=== PATIENT | male | born 1940 | race Hispanic/Latino ===

== ENCOUNTER 2016-06-17 12:05 | Inpatient (IN) | payer MEDICARE, MEDICAID ==
[2016-06-17 12:05] VITALS: BMI 36.7
--- NOTE | 2016-06-17 12:46 | CT ---
PROCEDURE: CT HEAD WITHOUT CONTRAST. HISTORY: . COMPARISON: Comparison is made to the previous study dated 05/22/2015 TECHNIQUE: Axial computed tomography images were obtained through the head/brain without intravenous contrast. Radiation dose: Total exam DLP = 850.37 mGy-cm. This CT exam was performed using one or more of the following dose reduction techniques: Automated exposure control, adjustment of the mA and/or kV according to patient size, and/or use of iterative reconstruction technique. FINDINGS: HEMORRHAGE: No intracranial hemorrhage. BRAIN: No mass effect or edema. Small foci of hypodensity are again seen around the lateral ventricles. Findings suggestive of moderate chronic microvascular ischemic disease. Mild atrophy is also noted. VENTRICLES: Unremarkable. No hydrocephalus. CALVARIUM: Unremarkable. PARANASAL SINUSES: Mild mucosal thickening in the ethmoid sinuses noted. MASTOID AIR CELLS: Partial opacification of the right mastoid and right middle ear is also noted. OTHER FINDINGS: None. IMPRESSION: No evidence of acute intracranial hemorrhage acute territorial infarct mass effect or midline shift. No significant interval change compared to the previous exam noted. Partial opacification of the right mastoid and right middle ear. Correlate clinically for otomastoiditis.
[2016-06-17 12:54] LABS: BASO % 0.6 % (0.0-2.0); EOS # 0.3 K/uL (0.0-0.7); EOS % 4.3 % (0.0-4.0); HEMATOCRIT 48.2 % (35.0-51.0); LYMPH # 1.5 K/uL (1.0-4.3); LYMPH % 23.9 % (20.0-40.0); MEAN CELL VOLUME 91.6 fL (80.0-94.0); MEAN CORPUSCULAR HEMOGLOBIN 29.7 pg (27.0-31.0); MEAN CORPUSCULAR HGB CONC 32.5 g/dL (33.0-37.0); MEAN PLATELET VOLUME 9.1 fL (7.2-11.7); MONO # 0.7 K/uL (0.0-0.8); MONO % 11.5 % (0.0-10.0); RED CELL DISTRIBUTION WIDTH 14.8 % (11.5-14.5); WHITE BLOOD COUNT 6.2 K/uL (4.8-10.8)
[2016-06-17 13:07] LABS: CHLORIDE 99 mmol/L (98-107)
[2016-06-17 13:08] LABS: POTASSIUM 4.4 mmol/L (3.6-5.2); SODIUM 139 mmol/L (132-148)
[2016-06-17 13:09] LABS: CHOLESTEROL 138 mg/dL (0-199)
[2016-06-17 13:10] LABS: ALB/GLOB RATIO 1.6 (1.0-2.1); ALKALINE PHOSPHATASE 68 U/L (38-126); ALT/SGPT 24 U/L (21-72); AST/SGOT 48 U/L (17-59); BILIRUBIN,TOTAL 0.8 mg/dL (0.2-1.3); BLOOD UREA NITROGEN 26 mg/dL (9-20); CALCIUM 8.9 mg/dl (8.6-10.4); CARBON DIOXIDE 25 mmol/L (22-30); GFR AFRICAN-AMERICAN > 60; GLUCOSE,RANDOM 123 mg/dL (75-110); TOTAL PROTEIN 7.3 g/dL (6.3-8.3)
--- NOTE | 2016-06-17 13:17 | C.PDOC ---
History Of Present Illness Patient BIBA for evaluation of LUE weakness and headache that began at approx 10 :30am. Patient states he was at [facility] when he suddenly felt complete weakness of the LUE, was unable to move it. Symptoms have improved since then, currently feels mild weakness of LUE. He denies chest pain, SOB, visual changes , facial droop, slurred speech, cough, fever, neck pain. He has h/o HTN, DM II , hyperlipidemia, denies prior NV/CVA. Time Seen by Provider: 06/17/16 12:16 Chief Complaint (Nursing): Weakness/Neurological Deficit Past Medical History Reviewed: Historical Data, Nursing Documentation, Vital Signs Vital Signs: Last Vital Signs Temp 98.1 F 06/17/16 12:26 Pulse 76 06/17/16 12:45 Resp 16 06/17/16 12:45 BP 152/71 H 06/17/16 12:45 Pulse Ox 93 L 06/17/16 14:20 - Medical History PMH: Arthritis, Benign Prostatic Hyperplasia, Diabetes (NIDDM), Diverticulitis, Gall Bladder Disease (CHOLECYSTECTOMY "MANY YEARS AGO"), HTN, Hypercholesterolemia, Peripheral Edema, Sleep Apnea (NO C PAP) Surgical History: Cholecystectomy ("Over 20 years ago"), Hernia Repair - [facility] Procedures ENDOSC POLYPECTOMY OF LG INTEST (08/03/14) Family History: States: No Known Family Hx, Other Other Family History: noncontributory - Social History Hx Tobacco Use: Yes Hx Alcohol Use: No Hx Substance Use: No - Immunization History Hx Tetanus Toxoid Vaccination: Yes Hx Influenza Vaccination: Yes Hx Pneumococcal Vaccination: Yes Review Of Systems Except As Marked, All Systems Reviewed And Found Negative. Constitutional: Negative for: Fever, Chills Cardiovascular: Negative for: Chest Pain, Palpitations Respiratory: Negative for: Cough, Hemoptysis Gastrointestinal: Negative for: Nausea, Vomiting, Abdominal Pain, Diarrhea Neurological: Positive for: Weakness (LUE), Headache. Negative for: Numbness, Incoordination, Change in Speech, Confusion, Seizures, Altered Mental Status, Dizziness Physical Exam - Physical Exam Appears: Well, Non-toxic, No Acute Distress Skin: Normal Color, Warm, Dry, No Rash Head: Atraumatic, Normacephalic Eye(s): bilateral: Normal Inspection, PERRL, EOMI Oral Mucosa: Moist Neck: Normal, Normal ROM Chest: Symmetrical Cardiovascular: Rhythm Regular Respiratory: Normal Breath Sounds, No Rales, No Rhonchi, No Wheezing Gastrointestinal/Abdominal: Normal Exam, Bowel Sounds, Soft, No Tenderness Extremity: Normal ROM, No Pedal Edema, No Calf Tenderness, No Deformity Extremity: Bilateral: Atraumatic, Normal Color And Temperature, Normal ROM Pulses: Left Dorsalis Pedis: Normal, Right Dorsalis Pedis: Normal Neurological/Psych: Oriented x3, Normal Speech, Normal Cognition, Normal Cranial Nerves, No Cerebellar Signs, Normal Motor, Normal Sensation, Normal Reflexes Gait: Steady ED Course And Treatment - Laboratory Results Result Diagrams: 06/17/16 12:46 06/17/16 12:46 ECG: Interpreted By Me, Viewed By Me (NSR 73 bpm, left axis deviation, no acute ST/T wave changes) ECG Interpretation: No Acute Changes O2 Sat by Pulse Oximetry: 93 (RA) Pulse Ox Interpretation: Abnormal - Other Rad CXR X-Ray: Viewed By Me, Read By Radiologist Interpretation: Accession No. : [id number]. Patient Name / ID : ANGELA HOLLINGSWORTH / [id number]. Exam Date : 06/17/2016 12:25:16 ( Approved ). Study Comment : Sex / Age : M / 76Y. Creator : RALPH KATZ. Dictator : Pauline Schmitz MD. Folder Machine : Chief Solution Architect : Pauline Schmitz MD. Approver2 : Report Date : 06/17/2016 12:57:42. My Comment : . HISTORY: code stroke. COMPARISON: Chest x-ray performed 12/23/15. TECHNIQUE: Chest, one view. FINDINGS: LUNGS: Prominent interstitial markings likely reflect vascular crowding due to hypoinflation rather than pulmonary venous congestion. Correlate clinically. Please note that chest x-ray has limited sensitivity for the detection of pulmonary masses. PLEURA: No significant pleural effusion identified. No definite pneumothorax . CARDIOVASCULAR: Stable appearing enlargement of the cardiomediastinal silhouette. Probable ectatic aorta and atherosclerotic calcifications. OSSEOUS STRUCTURES: No acute osseous abnormality identified. VISUALIZED UPPER ABDOMEN: Unremarkable. OTHER FINDINGS: None. IMPRESSION: Prominent interstitial markings likely reflect vascular crowding due to hypoinflation rather than pulmonary venous congestion. Correlate clinically. Stable appearing enlargement of the cardiomediastinal silhouette. Probable ectatic aorta and atherosclerotic calcifications. - CT Scan/US CT HEAD Other Rad Studies (CT/US): Read By Radiologist, Radiology Report Reviewed CT/US Interpretation: Accession No. : [id number]. Patient Name / ID : ANGELA HOLLINGSWORTH / [id number]. Exam Date : 06/17/2016 12:35:04 ( Approved ). Study Comment : Sex / Age : M / 76Y. Creator : Mirta Daniel. Dictator : Mirta Daniel. Folder Machine : Chief Solution Architect : Mirta Daniel. Approver2 : Report Date : 06/17/2016 12:44:36. My Comment : . PROCEDURE: CT HEAD WITHOUT CONTRAST. HISTORY: . COMPARISON: Comparison is made to the previous study dated 05/22/2015. TECHNIQUE: Axial computed tomography images were obtained through the head/brain without intravenous contrast. Radiation dose: Total exam DLP = 850.37 mGy-cm. This CT exam was performed using one or more of the following dose reduction techniques: Automated exposure control, adjustment of the mA and/or kV according to patient size, and/or use of iterative reconstruction technique. FINDINGS: HEMORRHAGE: No intracranial hemorrhage. BRAIN: No mass effect or edema. Small foci of hypodensity are again seen around the lateral ventricles. Findings suggestive of moderate chronic microvascular ischemic disease. Mild atrophy is also noted. VENTRICLES : Unremarkable. No hydrocephalus. CALVARIUM: Unremarkable. PARANASAL SINUSES : Mild mucosal thickening in the ethmoid sinuses noted. MASTOID AIR CELLS: Partial opacification of the right mastoid and right middle ear is also noted. OTHER FINDINGS: None. IMPRESSION: No evidence of acute intracranial hemorrhage acute territorial infarct mass effect or midline shift. No significant interval change compared to the previous exam noted. Partial opacification of the right mastoid and right middle ear. Correlate clinically for otomastoiditis. Progress Note: Blood work, CXR, EKG, CT head ordered and reviewed. After CT head (-) for bleed, PO ASA 162mg given (patient took 81 mg dose prior to arrival ). Ct read mentions right ear/mastoid findings, however patient has no ear pain /mastoid TTP. Reevaluation Time: 14:10 Reassessment Condition: Improved (Patient resting comfortably, has no current pain. He still c/o mild LUE weakness, but has 5/5 motor strength and normal sensation on physical exam B/L.) - Physician Consult Information Physician Contacted: Zaki Potts Outcome Of Conversation: Discussed patient with Dr. Cayetano Potts, he agrees with telemetry admission for TIA. Neurology road commissioner & Dr. Farmer's (patient's ward service supervisor) consults entered. NIHSS Stroke Scale - Date/Time Evaluation Performed Date Performed: 06/17/16 Time Performed: 12:12 When Was NIHSS Performed: Baseline - How Severe is the Stoke Level of Consciousness: 0=Alert LOC to Questions: 0=Both comments correct LOC to commands: 0=Obeys both correctly Best Gaze: 0=Normal Visual: 0=No visual loss Facial: 0=Normal Motor Arm - Left: 0=No drift Motor Arm - Right: 0=No drift Motor Leg - Left: 0=No drift Motor Leg - Right: 0=No drift Limb Ataxia: 0=Absent Sensory: 0=Normal Best Language: 0=No aphasia Dysarthia: 0=Normal articulation Extinction & Inattention (Neglect): 0=Normal, no object Score: 0 Severity Of Stroke: 0= No Stroke rTPA Inclusion/Exclusion - Refusal of Treatment Patient Refused Treatment: No - Inclusion Criteria for Altepase Patient is 18 years or Older: Yes The Clinical Diagnosis of Ischemic Stroke That is Causing a Potentially Disabling Neurological Deficit: No Time of Onset is Well Established to be Less Than 270 Minute Before Treatment Would Begin: Yes Risk/Benefit Discussed With Patient/Family Member Present: No Medical Decision Making Medical Decision Making: differential diagnoses considered: TIA/CVA, cervical radiculopathy, diabetic neuropathy, thoracic outlet syndome, NV/ACS Disposition - Disposition Disposition Time: 14:12 Condition: STABLE - Clinical Impression Clinical Impression: TIA (transient ischemic attack), Left arm weakness Decision To Admit - Pt Status Changed To: Hospital Disposition Of: Inpatient - Admit Certification Admit to Inpatient:: After my assessment, the patient will require hospitalization for at least two midnights. This is because of the severity of symptoms shown, intensity of services needed, and/or the medical risk in this patient being treated as an outpatient. - InPatient: Physician Admission Certification: I certify that this patient requires 2 or more midnights of care for the following reason:: see notes - . Bed Request Type: Telemetry Admitting Physician: Zaki Potts Patient Diagnosis: TIA (transient ischemic attack), Left arm weakness
--- NOTE | 2016-06-17 13:26 | RAD ---
HISTORY: code stroke COMPARISON: Chest x-ray performed 12/23/15 TECHNIQUE: Chest, one view. FINDINGS: LUNGS: Prominent interstitial markings likely reflect vascular crowding due to hypoinflation rather than pulmonary venous congestion. Correlate clinically. Please note that chest x-ray has limited sensitivity for the detection of pulmonary masses. PLEURA: No significant pleural effusion identified. No definite pneumothorax . CARDIOVASCULAR: Stable appearing enlargement of the cardiomediastinal silhouette. Probable ectatic aorta and atherosclerotic calcifications. OSSEOUS STRUCTURES: No acute osseous abnormality identified. VISUALIZED UPPER ABDOMEN: Unremarkable. OTHER FINDINGS: None. IMPRESSION: Prominent interstitial markings likely reflect vascular crowding due to hypoinflation rather than pulmonary venous congestion. Correlate clinically. Stable appearing enlargement of the cardiomediastinal silhouette. Probable ectatic aorta and atherosclerotic calcifications.
--- NOTE | 2016-06-17 18:21 | CP.PCM.CON ---
History of Present Illness - History of Present Illness History of Present Illness: I was asked to see patient by Dr Potts. Patient is a 76 year old male with PMH HTN who presents with TIA. The patient states he was at [facility] when he noted lUE weakness. The patient denied slurred sleep or facial droop. His L arm felt numb. The patient was unable to feel his left arm. He was brought to the ER. The patient had symptoms concerning for a TIA. He states at the time of my consultation in the ER he is able to lift his arm. Review of Systems - Constitutional Constitutional: absent: As Per HPI, Anorexia, Chills, Daytime Sleepiness, Excessive Sweating, Fatigue, Fever, Frequent Falls, Headache, Increased Appetite , Lethargy, Malaise, Night Sweats, Snoring, Sleep Apnea, Weight Gain, Weight Loss, Weakness, Other - EENT Eyes: absent: As Per HPI, Blind Spots, Blurred Vision, Change in Vision, Decreased Night Vision, Diplopia, Discharge, Dry Eye, Exophthalmos, Floaters, Irritation, Itchy Eyes, Loss of Peripheral Vision, Pain, Photophobia, Requires Corrective Lenses, Sees Flashes, Spots in Vision, Tunnel Vision, Other Visual Disturbances, Loss of Vision, Other Ears: absent: As Per HPI, Decreased Hearing, Ear Discharge, Ear Pain, Tinnitus, Abnormal Hearing, Disequilibrium, Dizziness, Other Nose/Mouth/Throat: absent: As Per HPI, Epistaxis, Nasal Congestion, Nasal Discharge, Nasal Obstruction, Nasal Trauma, Nose Pain, Post Nasal Drip, Sinus Pain, Sinus Pressure, Bleeding Gums, Change in Voice, Dental Pain, Dry Mouth, Dysphagia, Halitosis, Hoarsness, Lip Swelling, Mouth Lesions, Mouth Pain, Odynophagia, Sore Throat, Throat Swelling, Tongue Swelling, Facial Pain, Neck Pain, Neck Mass, Other - Cardiovascular Cardiovascular: absent: As Per HPI, Acrocyanosis, Chest Pain, Chest Pain at Rest , Chest Pain with Activity, Claudication, Diaphoresis, Dyspnea, Dyspnea on Exertion, Edema, Irregular Heart Rhythm, Pain Radiating to Arm/Neck/Jaw, Leg Edema, Leg Ulcers, Lightheadedness, Orthopnea, Palpitations, Paroxysmal Nocturnal Dyspnea, Pedal Edema, Radiating Pain, Rapid Heart Rate, Slow Heart Rate, Syncope, Other - Respiratory Respiratory: absent: As Per HPI, Cough, Dyspnea, Hemoptysis, Dyspnea on Exertion , Wheezing, Snoring, Stridor, Pain on Inspiration, Chest Congestion, Excessive Mucous Production, Change in Mucous Color, Pain with Coughing, Other - Gastrointestinal Gastrointestinal: absent: As Per HPI, Abdominal Pain, Belching, Bloating, Change in Bowel Habits, Change in Stool Character, Coffee Ground Emesis, Constipation, Cramping, Diarrhea, Dyspepsia, Dysphagia, Early Satiety, Excessive Flatus, Fecal Incontinence, Heartburn, Hematemesis, Hematochezia, Loose Stools, Melena, Nausea, Odynophagia, Temesmus, Vomiting, Other - Genitourinary Genitourinary: absent: As Per HPI, Change in Urinary Stream, Difficulty Urinating, Dysuria, Flank Pain, Hematuria, Pyuria, Nocturia, Urinary Incontinence, Urinary Frequency, Urinary Hesitance, Urinary Urgency, Voiding Freq/Small Amts, Freq UTI, Hx Renal/Bladder Calculi, Hx /Renal Surgery, Bladder Distension, Other - Musculoskeletal Musculoskeletal: absent: As Per HPI, Abnormal Gait, Arthralgias, Atrophy, Back Pain, Deformity, Joint Swelling, Limited Range of Motion, Loss of Height, Muscle Cramps, Muscle Weakness, Myalgias, Neck Pain, Numbness, Radiating Pain into Limb, Stiffness, Tingling, Other - Integumentary Integumentary: absent: As Per HPI, Acne, Alopecia, Bleeding Lesions, Change in Hair, Change in Nails, Change in Pigmentation, Changing Lesions, Dry Skin, Erythema, Furuncle, Hirsutism, Lesions, New Lesions, Non-Healing Lesions, Photosensitivity, Pruritus, Rash, Skin Pain, Skin Ulcer, Sores, Striae, Swelling , Unusual Bruising, Wounds, Jaundice, Other - Neurological Neurological: Weakness - Psychiatric Psychiatric: absent: As Per HPI, Abnormal Sleep Pattern, Anhedonia, Anxiety, Auditory Hallucinations, Behavioral Changes, Change in Appetite, Change in Libido, Confusion, Depression, Difficulty Concentrating, Hallucinations, Homicidal Ideation, Hopelessness, Irritability, Memory Loss, Mood Swings, Panic Attacks, Paranoia, Suicidal Ideation, Visual Hallucinations, Tactile Hallucinations, Other - Endocrine Endocrine: absent: As Per HPI, Change in Body Appearance, Change in Libido, Cold Intolorance, Deepening of Voice, Excessive Sweating, Fatigue, Flushing, Heat Intolorance, Increase in Ring/Shoe/Hat Size, Palpitations, Polydipsia, Polyphagia, Polyuria, Other - Hematologic/Lymphatic Hematologic: absent: As Per HPI, Easy Bleeding, Easy Bruising, Lymphadenopathy, Other Past Patient History - Infectious Disease Hx of Infectious Diseases: None - Past Medical History & Family History Past Medical History?: Yes - Past Social History Smoking Status: Never Smoked - CARDIAC Hx Cardiac Disorders: Yes Hx Hypercholesterolemia: Yes Hx Hypertension: Yes Hx Peripheral Edema: No - PULMONARY Hx Respiratory Disorders: Yes Hx Sleep Apnea: Yes (NO C PAP) - NEUROLOGICAL Hx Paralysis: No Hx Transient Ischemic Attacks (TIA): Yes (this admission) - HEENT Hx HEENT Problems: Yes Hx Cataracts: Yes (RIGHT EYE REMOVED 15 YEARS AGO) - RENAL Hx Chronic Kidney Disease: No - ENDOCRINE/METABOLIC Hx Endocrine Disorders: Yes Hx Diabetes Mellitus Type 2: Yes - HEMATOLOGICAL/ONCOLOGICAL Hx Blood Disorders: Yes Hx Blood Transfusions: No Hx Blood Transfusion Reaction: No - INTEGUMENTARY Hx Dermatological Problems: Yes - MUSCULOSKELETAL/RHEUMATOLOGICAL Hx Arthritis: Yes Hx Back Pain: Yes Hx Falls: No Hx Gout: Yes - GASTROINTESTINAL Hx Colostomy: Yes (twice) Hx Constipation: Yes (chronic) Hx Diverticulitis: Yes Hx Gall Bladder Disease: Yes (CHOLECYSTECTOMY "MANY YEARS AGO") Hx Hemorrhoids: Yes - GENITOURINARY/GYNECOLOGICAL Hx Genitourinary Disorders: Yes Hx Prostate Problems: Yes - PSYCHIATRIC Hx Psychophysiologic Disorder: No Hx Substance Use: No - SURGICAL HISTORY Hx Cataract Extraction: Yes Hx Cholecystectomy: Yes ("Over 20 years ago") Other/Comment: umbilical hernia repair - ANESTHESIA Hx Anesthesia Reactions: No Hx Malignant Hyperthermia: No Meds Allergies/Adverse Reactions: Allergies Allergy/AdvReac Type Severity Reaction Status Date / Time No Known Allergies Allergy Verified 12/23/15 07:08 - Medications Medications: Current Medications Aspirin (Aspirin Chewable) 81 mg PO DAILY [facility] Clopidogrel Bisulfate (Plavix) 75 mg PO DAILY [facility] Physical Exam - Constitutional Appears: Non-toxic - Head Exam Head Exam: NORMAL INSPECTION - Eye Exam Eye Exam: Normal appearance - ENT Exam ENT Exam: Mucous Membranes Moist - Neck Exam Neck exam: Positive for: Full Rom - Respiratory Exam Respiratory Exam: Decreased Breath Sounds - Cardiovascular Exam Cardiovascular Exam: REGULAR RHYTHM - GI/Abdominal Exam GI & Abdominal Exam: Normal Bowel Sounds - Rectal Exam Rectal Exam: Deferred - Extremities Exam Extremities exam: Negative for: pedal edema - Back Exam Back exam: NORMAL INSPECTION - Neurological Exam Neurological exam: Alert, Oriented x3 - Psychiatric Exam Psychiatric exam: Normal Affect - Skin Skin Exam: Normal Color Results - Vital Signs Recent Vital Signs: Last Vital Signs Temp 98.2 F 06/17/16 16:07 Pulse 74 06/17/16 16:07 Resp 20 06/17/16 16:07 BP 142/64 06/17/16 16:07 Pulse Ox 92 L 06/17/16 16:07 - Labs Result Diagrams: 06/17/16 12:46 06/17/16 12:46 Labs: Laboratory Results - last 24 hr 06/17/16 16:51 POC Glucose (mg/dL) 123 H - EKG Data EKG Interpreted by: Myself EKG shows normal: Sinus rhythm Assessment & Plan (1) TIA (transient ischemic attack) Assessment and Plan: recommend statin, antiplatelet therapy. monitor on telemetry for atrial fibrillation. Status: Acute (2) Diabetes mellitus Assessment and Plan: glucose control Status: Chronic (3) HTN (hypertension) Assessment and Plan: blood pressure control. Status: Chronic
--- NOTE | 2016-06-17 18:42 | CP.PCM.HP ---
History of Present Illness - History of Present Illness History of Present Illness: Patient BIBA for evaluation of left upper extremity weakness and headache that began at approx 10:30 AM. Patient [facility] he [facility] felt complete weakness of the left upper extremity, was unable to move it. Symptoms have improved since then, currently feels mild weakness of left upper extremity. He denies chest pain, SOB, visual changes, facial droop, slurred speech, cough, fever, neck pain. He has history of hypertension, diabetes mellitus 2, hyperlipidemia, denies prior OH/CVA. Present on Admission - Present on Admission Any Indicators Present on Admission: No Past Patient History - Infectious Disease Hx of Infectious Diseases: None - Past Medical History & Family History Past Medical History?: Yes - Past Social History Smoking Status: Never Smoked - CARDIAC Hx Cardiac Disorders: Yes Hx Hypercholesterolemia: Yes Hx Hypertension: Yes Hx Peripheral Edema: No - PULMONARY Hx Respiratory Disorders: Yes Hx Sleep Apnea: Yes (NO C PAP) - NEUROLOGICAL Hx Paralysis: No Hx Transient Ischemic Attacks (TIA): Yes (this admission) - HEENT Hx HEENT Problems: Yes Hx Cataracts: Yes (RIGHT EYE REMOVED 15 YEARS AGO) - RENAL Hx Chronic Kidney Disease: No - ENDOCRINE/METABOLIC Hx Endocrine Disorders: Yes Hx Diabetes Mellitus Type 2: Yes - HEMATOLOGICAL/ONCOLOGICAL Hx Blood Disorders: Yes Hx Blood Transfusions: No Hx Blood Transfusion Reaction: No - INTEGUMENTARY Hx Dermatological Problems: Yes - MUSCULOSKELETAL/RHEUMATOLOGICAL Hx Arthritis: Yes Hx Back Pain: Yes Hx Falls: No Hx Gout: Yes - GASTROINTESTINAL Hx Colostomy: Yes (twice) Hx Constipation: Yes (chronic) Hx Diverticulitis: Yes Hx Gall Bladder Disease: Yes (CHOLECYSTECTOMY "MANY YEARS AGO") Hx Hemorrhoids: Yes - GENITOURINARY/GYNECOLOGICAL Hx Genitourinary Disorders: Yes Hx Prostate Problems: Yes - PSYCHIATRIC Hx Psychophysiologic Disorder: No Hx Substance Use: No - SURGICAL HISTORY Hx Cataract Extraction: Yes Hx Cholecystectomy: Yes ("Over 20 years ago") Other/Comment: umbilical hernia repair - ANESTHESIA Hx Anesthesia Reactions: No Hx Malignant Hyperthermia: No Meds Home Medications: Home Medication List Medication Instructions Recorded Confirmed Type Clopidogrel [Plavix] 75 mg PO DAILY #30 tab 06/20/16 Rx Allergies/Adverse Reactions: Allergies Allergy/AdvReac Type Severity Reaction Status Date / Time No Known Allergies Allergy Verified 06/24/16 05:58 Physical Exam - Constitutional Appears: Well - Head Exam Head Exam: ATRAUMATIC, NORMAL INSPECTION, NORMOCEPHALIC - Eye Exam Eye Exam: EOMI, Normal appearance, PERRL Pupil Exam: NORMAL ACCOMODATION, PERRL - ENT Exam ENT Exam: Mucous Membranes Moist, Normal Exam - Neck Exam Neck exam: Positive for: Normal Inspection - Respiratory Exam Respiratory Exam: Decreased Breath Sounds - Cardiovascular Exam Cardiovascular Exam: REGULAR RHYTHM, +S1, +S2 - GI/Abdominal Exam GI & Abdominal Exam: Diminished Bowel Sounds, Soft - Rectal Exam Rectal Exam: Deferred Results - Vital Signs Recent Vital Signs: Last Vital Signs Temp 98.0 F 06/17/16 18:23 Pulse 70 06/17/16 18:23 Resp 18 06/17/16 18:23 BP 174/66 H 06/17/16 18:23 Pulse Ox 93 L 06/17/16 18:23 - Labs Result Diagrams: 06/20/16 07:42 06/20/16 07:42 Labs: Laboratory Results - last 24 hr 06/17/16 16:51 POC Glucose (mg/dL) 123 H Assessment & Plan (1) Abdominal pain Status: Acute (2) Abscess between intestinal loops Status: Acute Priority: Low (3) Asthma Status: Acute (4) Cellulitis Status: Acute (5) Chest pain Status: Acute (6) Diarrhea Status: Acute (7) Diverticulitis Status: Acute Priority: Low (8) GI bleed Status: Acute (9) Gout Status: Acute (10) Hyperlipidemia Status: Acute (11) Hypotension Status: Acute (12) Left arm weakness Status: Acute (13) Near syncope Status: Acute Priority: Medium (14) Neck pain Status: Acute (15) Normal exam Status: Acute (16) Prolonged QT interval Status: Acute (17) Prophylactic measure Status: Acute (18) TIA (transient ischemic attack) Status: Acute (19) Vasovagal episode Status: Acute (20) Vertigo Status: Acute (21) BPH (benign prostatic hyperplasia) Status: Chronic (22) Chest pain Status: Chronic Priority: Low (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 Mclaughlin
--- NOTE | 2016-06-17 19:37 | CON ---
DATE: 06/17/2016 REASON FOR CONSULTATION: Left-sided weakness. HISTORY OF PRESENT ILLNESS: The patient is a 76-year-old male who was brought into the hospital afte r he noticed to have left upper extremity weakness. It was more marked this morning when all of a cruz dden he experienced weakness in his left upper extremity. He was unable to move his left arm and fel t weakness and decided to come to the Emergency Room. The patient did not have any headaches. Did n ot have any chest pain. The weakness lasted for about 10 minutes and then he was fine. At the momen t, he feels good. REVIEW OF SYSTEMS: Denies any headache, dizziness, chest pain, shortness of breath, abdominal pain, constipation, diarrhea, dysuria, pyuria, cough or sputum production. PAST MEDICAL HISTORY: Includes diabetes mellitus, hypertension, hypercholesterolemia, sleep apnea. PAST SURGICAL HISTORY: Include cholecystectomy and hernia repair. MEDICATIONS: At home included aspirin 81 mg, losartan/hydrochlorothiazide, lansoprazole, Vasotec, Ze beta, Zyloprim, Glucophage, tamsulosin and simvastatin. ALLERGIES: No known drug allergies. SOCIAL HISTORY: Denies smoking, use of alcohol or illicit drugs. FAMILY HISTORY: Reviewed and noncontributory to the case. PHYSICAL EXAMINATION: GENERAL: The patient is an elderly pleasant male lying on the bed, in no acute distress. VITAL SIGNS: His blood pressure is 142/64, heart rate is 74 per minute, breathing at a rate of 16 pe r minute, temperature is 98.2 degrees Fahrenheit. HEENT: Head is normocephalic, atraumatic. NECK: Supple. There are no carotid bruits. LUNGS: Clear. CARDIOVASCULAR: S1, S2 audible. No murmurs. ABDOMEN: Soft, nontender. Bowel sounds present. NEUROLOGIC EXAMINATION: MENTAL STATUS: The patient is awake, alert, oriented to time, place, and person. Speech is fluent. Naming and repetition normal. Memory and cognition are intact. CRANIAL NERVES: Pupils are 3 mm bilaterally reactive to light. Visual bautista are full. Extraocular movements are intact. There is no facial asymmetry. Palate is upgoing bilaterally and tongue is mi dline. MOTOR: Tone is normal. Power is 5/5 bilaterally in all extremities. REFLEXES: +1 and symmetrical. Plantars downgoing bilaterally. CEREBELLAR: Ehncoa-jb-qrrw shows no dysmetria. GAIT: Deferred at the moment. LABORATORY DATA: Reviewed. Shows WBC 6.2, hemoglobin 15.6, hematocrit of 48.2 and platelets of 177. His INR is 1.0. Sodium is 139, potassium 4.4, chloride 99, carbon dioxide content 25, BUN of 26, c reatinine of ____.8 and glucose of 123. His cholesterol is 148, LDL is 68. He had a CT scan of the head done which shows no acute intracranial pathology. IMPRESSION: Transient ischemic attack with episode of left arm weakness, which is resolved. RECOMMENDATIONS: 1. The patient to have MRI of the brain without contrast. 2. The patient also to have a carotid Doppler study. 3. The patient to have an echocardiogram. 4. The patient to be started on Plavix in addition to aspirin, and overlap the aspirin and Plavix fo r a few days before keeping him only on Plavix. 5. The patient to be continued on statin. 6. At the moment, the patient has no focal neurologic deficits. 7. The patient's National [place] [employer] stroke scale is 0. 8. The patient was not a candidate for TPA administration because of complete resolution of his symp toms. Thank you for the opportunity to participate in the care of this patient. Alhaji Cotton MD cc: [id number] TT: 06/17/2016 19:36:59 Confirmation # [id number] Dictation # [id number] linda
--- NOTE | 2016-06-18 09:53 | CP.PCM.PN ---
Subjective - Date & Time of Evaluation Date of Evaluation: 06/18/16 Time of Evaluation: 09:50 - Subjective Subjective: patient has no current chest pain or dyspnea. still in ER. Objective - Vital Signs/Intake and Output Vital Signs (last 24 hours): Temp Pulse Resp BP Pulse Ox 98 F 76 16 151/79 H 94 L 06/18/16 09:22 06/18/16 09:22 06/18/16 09:22 06/18/16 09:22 06/18/16 09:22 - Medications Medications: Current Medications Allopurinol (Zyloprim) 300 mg PO [facility] Last Admin: 06/17/16 21:18 Dose: 300 mg Aspirin (Ecotrin) 81 mg PO [facility] Bisoprolol Fumarate (Zebeta) 5 mg PO DAILY [facility] Clopidogrel Bisulfate (Plavix) 75 mg PO DAILY [facility] Enoxaparin Sodium (Lovenox) 40 mg SC DAILY [facility] Famotidine (Pepcid) 20 mg PO BID [facility] Hydrochlorothiazide (Microzide) 12.5 mg PO DAILY [facility] Losartan Potassium (Cozaar) 50 mg PO DAILY [facility] Metformin HCl (Glucophage) 850 mg PO BID [facility] Rosuvastatin Calcium (Crestor) 10 mg PO [facility] Last Admin: 06/17/16 21:18 Dose: 10 mg Tamsulosin HCl (Flomax) 0.4 mg PO [facility] Last Admin: 06/17/16 21:18 Dose: 0.4 mg - Labs Labs: PT 10.9 SECONDS (9.7-12.2) 06/17/16 12:46 INR 1.0 06/17/16 12:46 APTT 29 SECONDS (21-34) 06/17/16 12:46 - Constitutional Appears: Non-toxic - Head Exam Head Exam: NORMAL INSPECTION - Eye Exam Eye Exam: Normal appearance - ENT Exam ENT Exam: Mucous Membranes Moist - Neck Exam Neck Exam: Full ROM - Respiratory Exam Respiratory Exam: NORMAL BREATHING PATTERN - Cardiovascular Exam Cardiovascular Exam: REGULAR RHYTHM - GI/Abdominal Exam GI & Abdominal Exam: Normal Bowel Sounds - Rectal Exam Rectal Exam: Deferred - Extremities Exam Extremities Exam: Pedal Edema - Back Exam Back Exam: NORMAL INSPECTION - Neurological Exam Neurological Exam: Alert - Psychiatric Exam Psychiatric exam: Normal Affect - Skin Skin Exam: Normal Color Assessment and Plan (1) TIA (transient ischemic attack) Assessment & Plan: statin antiplatelet therapy Status: Acute (2) Diabetes mellitus Assessment & Plan: tight glucose control Status: Chronic (3) HTN (hypertension) Assessment & Plan: blood pressure control Status: Chronic
[2016-06-18] MEDS ORDERED: LANSOPRAZOLE 30 MG PO SCH (10:00)
[2016-06-18] MEDS: Enoxaparin 40 mg Syringe SC SCH (10:08)
--- NOTE | 2016-06-18 10:15 | MRI ---
PROCEDURE: MRI BRAIN WITHOUT CONTRAST HISTORY: tia COMPARISON: Comparison is made to the previous CT dated 06/17/2016. TECHNIQUE: Multiplanar, multisequence MR images of the brain were obtained without intravenous contrast enhancement. FINDINGS: HEMORRHAGE: None DWI: No evidence of an acute or early subacute infarction. BRAIN PARENCHYMA: No mass effect or edema. Lhjq-xk-qlbbihao periventricular white matter changes suggestive but nonspecific for chronic microvascular ischemic disease. Small foci of hyperintense FLAIR signal seen in the periventricular region demonstrate hyperintense T2 signal suggestive but nonspecific for dilated perivascular space. Mild atrophy is also noted. VENTRICLES: Unremarkable. No hydrocephalus. CRANIUM: Unremarkable. ORBITS: Grossly unremarkable. PARANASAL SINUSES/MASTOIDS: Clear VASCULAR SYSTEM: Skull base flow voids intact. OTHER FINDINGS: None. IMPRESSION: No evidence of acute or subacute infarct. Mild white matter changes suggestive but nonspecific for chronic microvascular ischemic disease. Mild atrophy.
--- NOTE | 2016-06-18 10:51 | PN ---
PROCEDURE DATE: 06/18/2016 NEUROLOGY PROGRESS NOTE The patient is sitting on the chair in no acute distress, said he feels his left hand is a little wea ker than the right, however. No other complaints. VITAL SIGNS: His blood pressure is 151/79. Heart rate is 76 per minute, breathing at a rate of 16 p er minute. Temperature is 98 degrees Fahrenheit. HEENT: Normocephalic, atraumatic. NECK: Supple. There are no carotid bruits. LUNGS: Clear. CARDIOVASCULAR: S1, S2 audible. No murmurs. ABDOMEN: Soft, nontender. Bowel sounds are present. NEUROLOGY: Mental status: The patient is awake, alert, oriented to time, place, person. His speech is fluent. Naming and repetition normal. Memory and cognition are intact. Cranial nerves: Pupils are 4 mm bilaterally, reactive to light. Visual bautista are full. Extraocula r movements are intact. There is no facial asymmetry. Palate is upgoing bilaterally, and tongue is midline. Motor examination: Tone is normal. Power is 5/5 bilaterally in all extremities. Reflexes +1 and sy mmetrical. Plantars are downgoing bilaterally. Cerebellar: [id number]-[id number] shows no dysmetria. IMPRESSION: Transient ischemic attack. The patient is status post weakness of the left upper extrem ity. RECOMMENDATIONS: 1. The patient had MRI of the brain done. The report is awaited. 2. The patient to have a carotid Doppler study, as well as an echocardiogram. 3. The patient to be continued on aspirin and statin. 4. The patient had no further episode of weakness in his left upper extremity. 5. Please continue other treatment and supportive care. Thank you for the opportunity to participate in the care of this patient. Alhaji Cotton MD cc: [id number] TT: 06/18/2016 10:50:42 angel
--- NOTE | 2016-06-18 16:56 | CP.PCM.PN ---
Subjective - Date & Time of Evaluation Date of Evaluation: 06/18/16 Time of Evaluation: 13:40 - Subjective Subjective: clinically same Objective - Vital Signs/Intake and Output Vital Signs (last 24 hours): Temp Pulse Resp BP Pulse Ox 97.6 F 70 20 135/66 94 L 06/18/16 15:45 06/18/16 15:45 06/18/16 15:45 06/18/16 15:45 06/18/16 15:45 - Medications Medications: Current Medications Allopurinol (Zyloprim) 300 mg PO [facility] Last Admin: 06/17/16 21:18 Dose: 300 mg Amlodipine Besylate (Norvasc) 5 mg PO DAILY [facility] Aspirin (Ecotrin) 81 mg PO DAILY [facility] Last Admin: 06/18/16 09:48 Dose: 81 mg Bisoprolol Fumarate (Zebeta) 5 mg PO DAILY [facility] Last Admin: 06/18/16 09:49 Dose: 5 mg Clopidogrel Bisulfate (Plavix) 75 mg PO DAILY [facility] Last Admin: 06/18/16 09:48 Dose: 75 mg Enoxaparin Sodium (Lovenox) 40 mg SC DAILY [facility] Last Admin: 06/18/16 10:08 Dose: 40 mg Famotidine (Pepcid) 20 mg PO BID [facility] Last Admin: 06/18/16 09:48 Dose: 20 mg Hydrochlorothiazide (Microzide) 12.5 mg PO DAILY [facility] Last Admin: 06/18/16 09:48 Dose: 12.5 mg Losartan Potassium (Cozaar) 50 mg PO DAILY [facility] Last Admin: 06/18/16 09:49 Dose: 50 mg Metformin HCl (Glucophage) 850 mg PO BID [facility] Last Admin: 06/18/16 09:47 Dose: 850 mg Rosuvastatin Calcium (Crestor) 10 mg PO [facility] Last Admin: 06/17/16 21:18 Dose: 10 mg Tamsulosin HCl (Flomax) 0.4 mg PO [facility] Last Admin: 06/17/16 21:18 Dose: 0.4 mg - Labs Labs: PT 10.9 SECONDS (9.7-12.2) 06/17/16 12:46 INR 1.0 06/17/16 12:46 APTT 29 SECONDS (21-34) 06/17/16 12:46 - Constitutional Appears: Well - Head Exam Head Exam: ATRAUMATIC, NORMAL INSPECTION, NORMOCEPHALIC - Eye Exam Eye Exam: EOMI, Normal appearance, PERRL Pupil Exam: NORMAL ACCOMODATION, PERRL - ENT Exam ENT Exam: Mucous Membranes Moist, Normal Exam - Respiratory Exam Respiratory Exam: Decreased Breath Sounds - Cardiovascular Exam Cardiovascular Exam: REGULAR RHYTHM, +S1, +S2 - GI/Abdominal Exam GI & Abdominal Exam: Soft, Diminished Bowel Sounds - Rectal Exam Rectal Exam: Deferred Assessment and Plan (1) Abdominal pain Status: Acute (2) Abscess between intestinal loops Status: Acute (3) Asthma Status: Acute (4) Cellulitis Status: Acute (5) Chest pain Status: Acute (6) Diarrhea Status: Acute (7) Diverticulitis Status: Acute (8) GI bleed Status: Acute (9) Gout Status: Acute (10) Hyperlipidemia Status: Acute (11) Hypotension Status: Acute (12) Left arm weakness Status: Acute (13) Near syncope Status: Acute (14) Neck pain Status: Acute (15) Normal exam Status: Acute (16) Prolonged QT interval Status: Acute (17) Prophylactic measure Status: Acute (18) TIA (transient ischemic attack) Status: Acute (19) Vasovagal episode Status: Acute (20) Vertigo Status: Acute (21) BPH (benign prostatic hyperplasia) Status: Chronic (22) Chest pain Status: Chronic (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
--- NOTE | 2016-06-18 19:13 | VASCLAB ---
PROCEDURE: HISTORY: tia COMPARISON: None available. TECHNIQUE: Grayscale and duplex Doppler evaluation of the cervical carotid and vertebral arteries were performed. The common carotid, carotid bifurcations and cervical Internal Carotid Artery (ICA) and proximal External Carotid Artery (ECA) were evaluated. The vertebral arteries were evaluated for gross patency and flow direction. Report prepared by Tyler Huerta, BS, RVT FINDINGS: RIGHT CAROTID ARTERIES: 1. Common Carotid Artery: Mild multifocal calcific plaque formation of the right common carotid artery. Maximum Peak Systolic velocity: 56 cm/sec: End-diastolic velocity 0 cm/sec. 2. Carotid Bifurcation: Heterogeneous plaque formation. Maximum Peak Systolic velocity: 45 cm/sec: End-diastolic velocity 6 cm/sec. 3. Internal Carotid Artery: Minimal plaque formation of the right proximal ICA which does not result in hemodynamically significant stenosis. Plaque description: Heterogeneous. Tortuous course. 3.1. Proximal Segment: Peak systolic velocity 52 cm/sec: End-diastolic velocity 10 cm/sec - % stenosis 0-15% 3.2. Middle Segment: Peak systolic velocity 81 cm/sec: End-diastolic velocity 19 cm/sec - % stenosis 0-15% 3.3. Distal Segment: Peak systolic velocity 85 cm/sec: End-diastolic velocity 17 cm/sec - % stenosis 0-15% 4. External Carotid Artery: Calcific plaque formation. Peak systolic velocity 105 cm/sec 5. ICA/CCA Ratio: 1.5 LEFT CAROTID ARTERIES: 1. Common Carotid Artery: Mild multifocal calcific plaque formation of the left common carotid artery. Maximum Peak Systolic velocity: 51 cm/sec: End-diastolic velocity 10 cm/sec. 2. Carotid Bifurcation: Heterogeneous plaque formation. Maximum Peak Systolic velocity: 39 cm/sec: End-diastolic velocity 4 cm/sec. 3. Internal Carotid Artery: Minimal plaque formation of the left proximal ICA which does not result in hemodynamically significant stenosis. Plaque description: Heterogeneous. Tortuous course. 3.1. Proximal Segment: Peak systolic velocity 96 cm/sec: End-diastolic velocity 20 cm/sec - % stenosis 0-15% 3.2. Middle Segment: Peak systolic velocity 42 cm/sec: End-diastolic velocity 7 cm/sec - % stenosis 0-15% 3.3. Distal Segment: Peak systolic velocity 55 cm/sec: End-diastolic velocity 12 cm/sec - % stenosis 0-15% 4. External Carotid Artery: No significant focal plaque formation. Peak systolic velocity 91 cm/sec 5. ICA/CCA Ratio: 1.9 VERTEBRAL ARTERIES: 1. Right Vertebral Artery: The right vertebral artery flow direction is antegrade. 2. Left Vertebral Artery: The left vertebral artery flow direction is antegrade. OTHER FINDINGS: 1. Right Brachial Blood pressure: 150 mmHg. 2. Left Brachial Blood pressure: 146 mmHg. IMPRESSION: RIGHT: Duplex scan does not suggest hemodynamically significant stenosis of the right extracranial carotid arteries. LEFT: Duplex scan does not suggest hemodynamically significant stenosis of the left extracranial carotid arteries.
[2016-06-19] MEDS: Enoxaparin 40 mg Syringe SC SCH (09:25)
--- NOTE | 2016-06-19 11:58 | CARD ---
APPROVED REPORT EKG Measurement Heart [id number] <Conclusion> Normal sinus rhythm Left axis deviation Abnormal ECG
--- NOTE | 2016-06-19 12:36 | CARD ---
APPROVED REPORT EXAM: Two-dimensional and M-mode echocardiogram with Doppler and color Doppler. Other Information Quality : Technically LimitedRhythm : NSR INDICATION CVA/TIA Peripheral Edema RISK FACTORS Hypertension Hyperlipidemia Diabetes M-Mode DIMENSIONS RVDd1.44 (2.1-3.2cm)Left Atrium (MM)3.54 (2.5-4.0cm) IVSd1.65 (0.7-1.1cm)Aortic Root3.87 (2.2-3.7cm) LVDd5.15 (4.0-5.6cm)Aortic Cusp Exc.2.14 (1.5-2.0cm) PWd1.61 (0.7-1.1cm)FS (%) 29 % LVDs3.67 (2.0-3.8cm)LVEF (%)55 (>50%) Aortic Valve AoV Peak Ecpypvxr975.2cm/Ashlyn Peak GR.9mmHgAI P 1/2 Midf528fm Mitral Valve MV E Kywusyrn43.4cm/sMV A Chkeuate44.3cm/sE/A ratio0.6 TDI E/Lateral E'0.0E/Medial E'0.0 Tricuspid Valve TR Peak Bfvkehwb705em/sTR Peak Gr.[id number] LEFT VENTRICLE The left ventricle is normal size. There is moderate concentric left ventricular hypertrophy. The left ventricular function is normal. The left ventricular ejection fraction is within the normal range. There is normal LV segmental wall motion. Transmitral Doppler flow pattern is Grade I-abnormal relaxation pattern. No left ventricle thrombus noted on this study. There is no ventricular septal defect visualized. There is no left ventricular aneurysm. There is no mass noted in the left ventricle. RIGHT VENTRICLE The right ventricle is normal size. There is normal right ventricular wall thickness. The right ventricular systolic function is normal. ATRIA The left atrium size is normal. The right atrium size is normal. The interatrial septum is intact with no evidence for an atrial septal defect. AORTIC VALVE The aortic valve is normal in structure. There is trace aortic regurgitation. There is no aortic valvular stenosis. There is no aortic valvular vegetation. MITRAL VALVE The mitral valve is normal in structure. There is no mitral valve stenosis. There is no mitral valve regurgitation noted. TRICUSPID VALVE The tricuspid valve is normal in structure. There is no tricuspid valve regurgitation noted. PULMONIC VALVE The pulmonary valve is normal in structure. GREAT VESSELS The aortic root is normal in size. The ascending aorta is normal in size. PERICARDIAL EFFUSION There is no pericardial effusion. <Conclusion> There is moderate concentric left ventricular hypertrophy. Transmitral Doppler flow pattern is Grade I-abnormal relaxation pattern. LIMITED STUDY.
--- NOTE | 2016-06-19 15:37 | PN ---
DATE: 06/19/2016 SUBJECTIVE: The patient is sitting on the bed, in no acute distress. PHYSICAL EXAMINATION: VITAL SIGNS: His blood pressure is 134/69, heart rate is 58 per minute, breathing at a rate of 16 pe r minute, temperature is 97.3 degrees Fahrenheit. HEENT: Normocephalic, atraumatic. NECK: Supple. There are no carotid bruits. LUNGS: Clear. CARDIOVASCULAR: S1, S2 audible. No murmurs. ABDOMEN: Soft, nontender, bowel sounds present. NEUROLOGIC EXAMINATION: MENTAL STATUS: The patient is awake, alert, oriented to time, place, person. Speech is fluent. Nam ing and repetition normal. Memory and cognition are intact. CRANIAL NERVE EXAMINATION: Pupils are 4 mm bilaterally reactive to light. Visual bautista are full. Extraocular movements are intact. There is no facial asymmetry. MOTOR: Power is 5/5 bilaterally in all extremities. Reflexes 1+ and symmetrical. Plantars downgoin g bilaterally. LABORATORY DATA: Labs reviewed. MRI of the brain: No acute intracranial pathology. Carotid Dopple r, no significant stenosis. He had an echocardiogram done, which showed moderate concentric left ravi tricular hypertrophy. IMPRESSION: Status post left arm weakness, likely secondary to transient ischemic attack. RECOMMENDATIONS: 1. The patient to be continued on aspirin and statin. 2. The patient had no further episode of weakness on the left side. The patient is doing quite well . He is neurologically stable for discharge with outpatient followup. Thank you for the opportunity to participate in the care of this patient. Alhaji Cotton MD cc: [id number] TT: 06/19/2016 15:36:22 Confirmation # [id number] Dictation # [id number] devin
[2016-06-19 15:53] VITALS: RESP 20
--- NOTE | 2016-06-19 18:53 | CP.PCM.PN ---
Subjective - Date & Time of Evaluation Date of Evaluation: 06/19/16 Time of Evaluation: 13:40 - Subjective Subjective: clinically same Objective - Vital Signs/Intake and Output Vital Signs (last 24 hours): Temp Pulse Resp BP Pulse Ox 97.4 F L 66 20 137/72 93 L 06/19/16 15:51 06/19/16 15:51 06/19/16 15:51 06/19/16 15:51 06/19/16 15:51 - Medications Medications: Current Medications Allopurinol (Zyloprim) 300 mg PO [facility] Last Admin: 06/18/16 21:19 Dose: 300 mg Amlodipine Besylate (Norvasc) 5 mg PO DAILY [facility] Last Admin: 06/19/16 09:23 Dose: 5 mg Aspirin (Ecotrin) 81 mg PO DAILY [facility] Last Admin: 06/19/16 09:24 Dose: 81 mg Bisoprolol Fumarate (Zebeta) 5 mg PO DAILY [facility] Last Admin: 06/19/16 09:24 Dose: 5 mg Clopidogrel Bisulfate (Plavix) 75 mg PO DAILY [facility] Last Admin: 06/19/16 09:23 Dose: 75 mg Enoxaparin Sodium (Lovenox) 40 mg SC DAILY [facility] Last Admin: 06/19/16 09:25 Dose: 40 mg Famotidine (Pepcid) 20 mg PO BID [facility] Last Admin: 06/19/16 17:40 Dose: 20 mg Hydrochlorothiazide (Microzide) 12.5 mg PO DAILY [facility] Last Admin: 06/19/16 09:23 Dose: 12.5 mg Losartan Potassium (Cozaar) 50 mg PO DAILY [facility] Last Admin: 06/19/16 09:23 Dose: 50 mg Metformin HCl (Glucophage) 850 mg PO BID [facility] Last Admin: 06/19/16 17:40 Dose: 850 mg Rosuvastatin Calcium (Crestor) 10 mg PO [facility] Last Admin: 06/18/16 21:16 Dose: 10 mg Tamsulosin HCl (Flomax) 0.4 mg PO [facility] Last Admin: 06/18/16 21:16 Dose: 0.4 mg - Labs Labs: PT 10.9 SECONDS (9.7-12.2) 06/17/16 12:46 INR 1.0 06/17/16 12:46 APTT 29 SECONDS (21-34) 06/17/16 12:46 - Constitutional Appears: Well - Head Exam Head Exam: ATRAUMATIC, NORMAL INSPECTION, NORMOCEPHALIC - Eye Exam Eye Exam: EOMI, Normal appearance, PERRL Pupil Exam: NORMAL ACCOMODATION, PERRL - ENT Exam ENT Exam: Mucous Membranes Moist, Normal Exam - Neck Exam Neck Exam: Full ROM, Normal Inspection. absent: Lymphadenopathy - Respiratory Exam Respiratory Exam: Decreased Breath Sounds - Cardiovascular Exam Cardiovascular Exam: REGULAR RHYTHM, +S1, +S2 - GI/Abdominal Exam GI & Abdominal Exam: Soft, Diminished Bowel Sounds - Rectal Exam Rectal Exam: Deferred Assessment and Plan (1) Abdominal pain Status: Acute (2) Abscess between intestinal loops Status: Acute (3) Asthma Status: Acute (4) Cellulitis Status: Acute (5) Chest pain Status: Acute (6) Diarrhea Status: Acute (7) Diverticulitis Status: Acute (8) GI bleed Status: Acute (9) Gout Status: Acute (10) Hyperlipidemia Status: Acute (11) Hypotension Status: Acute (12) Left arm weakness Status: Acute (13) Near syncope Status: Acute (14) Neck pain Status: Acute (15) Normal exam Status: Acute (16) Prolonged QT interval Status: Acute (17) Prophylactic measure Status: Acute (18) TIA (transient ischemic attack) Status: Acute (19) Vasovagal episode Status: Acute (20) Vertigo Status: Acute (21) BPH (benign prostatic hyperplasia) Status: Chronic (22) Chest pain Status: Chronic (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
[2016-06-20 07:55] LABS: BASO % 0.8 % (0.0-2.0); EOS # 0.2 K/uL (0.0-0.7); EOS % 5.1 % (0.0-4.0); HEMATOCRIT 47.3 % (35.0-51.0); LYMPH # 1.4 K/uL (1.0-4.3); LYMPH % 30.6 % (20.0-40.0); MEAN CELL VOLUME 91.1 fL (80.0-94.0); MEAN CORPUSCULAR HEMOGLOBIN 30.2 pg (27.0-31.0); MEAN CORPUSCULAR HGB CONC 33.2 g/dL (33.0-37.0); MEAN PLATELET VOLUME 9.1 fL (7.2-11.7); MONO # 0.6 K/uL (0.0-0.8); MONO % 13.6 % (0.0-10.0); RED CELL DISTRIBUTION WIDTH 14.8 % (11.5-14.5); WHITE BLOOD COUNT 4.7 K/uL (4.8-10.8)
[2016-06-20 08:29] LABS: CHLORIDE 96 mmol/L (98-107); SODIUM 139 mmol/L (132-148)
[2016-06-20 08:32] LABS: BLOOD UREA NITROGEN 25 mg/dL (9-20); CALCIUM 9.2 mg/dl (8.6-10.4); CARBON DIOXIDE 30 mmol/L (22-30); GFR AFRICAN-AMERICAN > 60; GLUCOSE,RANDOM 124 mg/dL (75-110)
--- NOTE | 2016-06-20 08:32 | PN ---
DATE: 06/20/2016 SUBJECTIVE: The patient is lying on the bed, in no acute distress. Denies having any headache or di zziness. PHYSICAL EXAMINATION: VITAL SIGNS: Blood pressure is 134/75, heart rate is 73 per minute, breathing at a rate of 16 per mi nute, temperature is 97.6 degrees Fahrenheit. HEENT: Normocephalic, atraumatic. NECK: Supple. There are no carotid bruits. LUNGS: Clear. CARDIOVASCULAR: S1, S2 audible. No murmurs. ABDOMEN: Soft, nontender. Bowel sounds are present. NEUROLOGIC EXAMINATION: MENTAL STATUS: The patient is awake, alert, oriented to time, place, person. Speech is fluent. Nam ing and repetition normal. Memory and cognition are intact. CRANIAL NERVE: Pupils are 3 mm, bilaterally reactive to light. Visual bautista are full. Extraocular movements are intact. There is no facial asymmetry. Palate is upgoing bilaterally and tongue is mi dline. MOTOR: Tone is normal. Power is 5/5 bilaterally in all extremities. Reflexes +1 and symmetrical. Plantars downgoing bilaterally. IMPRESSION: Status post left arm weakness which is likely secondary to transient ischemic attack. RECOMMENDATIONS: 1. The patient does not have any further episode of left-sided weakness. 2. The patient to be continued on aspirin. 3. The patient also to be continued on statin, currently on rosuvastatin 10 mg which is to be contin ued. 4. If the patient remains stable, then possible discharge with outpatient followup. Thank you for the opportunity to participate in the care of this patient. Alhaji Cotton MD cc: [id number] TT: 06/20/2016 08:31:15 Confirmation # [id number] Dictation # [id number]
[2016-06-20] MEDS: Enoxaparin 40 mg Syringe SC SCH (09:45)
[2016-06-20 15:46] VITALS: BP 145/71; PULSE 71; TEMP 97.5; O2SAT 93
--- NOTE | 2016-06-20 17:35 | CP.PCM.PN ---
Subjective - Date & Time of Evaluation Date of Evaluation: 06/20/16 Time of Evaluation: 15:33 - Subjective Subjective: PT SEEN AND EXAMINED TODAY BY DR Nancy ESCOBAR, PT DENIES ANY CP, SOB, PALPITATIONS, RESP EASY AND UNLABORED. VSS, NAD. CT HEAD AND MRI - NORMAL, CAROTID DOPPLER- NORMAL, PT CLEARED FOR D/C BY DR Cayetano ESCOBAR, DR SANCHEZ AND DR ADAMS, MED REC DONE , PT EDUCATED TO F/U W/DR Cayetano ESCOBAR IN THE OFFICE NEXT MORNING, RETURN TO ED IF ANY WORSENING S/S, AGREE, VERBALIZE UNDERSTANDING. Objective - Vital Signs/Intake and Output Vital Signs (last 24 hours): Temp Pulse Resp BP Pulse Ox 97.5 F L 71 20 145/71 93 L 06/20/16 15:43 06/20/16 15:43 06/20/16 15:43 06/20/16 15:43 06/20/16 15:43 - Medications Medications: Current Medications Allopurinol (Zyloprim) 300 mg PO [facility] Last Admin: 06/19/16 22:22 Dose: 300 mg Amlodipine Besylate (Norvasc) 5 mg PO DAILY [facility] Last Admin: 06/20/16 09:47 Dose: 5 mg Aspirin (Ecotrin) 81 mg PO DAILY [facility] Last Admin: 06/20/16 09:44 Dose: 81 mg Bisoprolol Fumarate (Zebeta) 5 mg PO DAILY [facility] Last Admin: 06/20/16 09:48 Dose: 5 mg Clopidogrel Bisulfate (Plavix) 75 mg PO DAILY [facility] Last Admin: 06/20/16 09:48 Dose: 75 mg Enoxaparin Sodium (Lovenox) 40 mg SC DAILY [facility] Last Admin: 06/20/16 09:45 Dose: 40 mg Famotidine (Pepcid) 20 mg PO BID [facility] Last Admin: 06/20/16 09:47 Dose: 20 mg Hydrochlorothiazide (Microzide) 12.5 mg PO DAILY [facility] Last Admin: 06/20/16 09:46 Dose: 12.5 mg Losartan Potassium (Cozaar) 50 mg PO DAILY [facility] Last Admin: 06/20/16 09:43 Dose: 50 mg Metformin HCl (Glucophage) 850 mg PO BID [facility] Last Admin: 06/20/16 09:44 Dose: 850 mg Rosuvastatin Calcium (Crestor) 10 mg PO [facility] Last Admin: 06/19/16 22:23 Dose: 10 mg Tamsulosin HCl (Flomax) 0.4 mg PO HS [facility] Last Admin: 06/19/16 22:23 Dose: 0.4 mg - Labs Labs: 06/20/16 07:42 06/20/16 07:42 PT 10.9 SECONDS (9.7-12.2) 06/17/16 12:46 INR 1.0 06/17/16 12:46 APTT 29 SECONDS (21-34) 06/17/16 12:46
== END 2016-06-20 18:10 | disposition home or self-care (01) | DRG 69 ==
LOC: C.ER 12:05 → C.9E 14:12 → C.9I 06-18 07:50 → C.9E 06-18 07:50 → C.6T 06-18 13:13
PROVIDERS: ADMIT Internal Medicine Nephrology; ATTEND Internal Medicine Nephrology
DX: G45.9 Transient cerebral ischemic attack, unspecified (principal); E11.9 Type 2 diabetes mellitus without complications; I10 Essential (primary) hypertension; E78.5 Hyperlipidemia, unspecified; M19.90 Unspecified osteoarthritis, unspecified site; E78.00 Pure hypercholesterolemia, unspecified; G47.30 Sleep apnea, unspecified; N40.0 Benign prostatic hyperplasia without lower urinary tract symptoms; M10.9 Gout, unspecified; Z90.49 Acquired absence of other specified parts of digestive tract

== ENCOUNTER 2016-06-24 05:40 | Emergency (ER) | payer MEDICARE, MEDICAID ==
[2016-06-24 05:40] VITALS: BMI 36.7
--- NOTE | 2016-06-24 06:36 | C.PDOC ---
History Of Present Illness pt presents with neck pain, having neck pain while turning especially towards the left, Denies any trauma., No slurred speech, facial droop Time Seen by Provider: 06/24/16 06:33 Chief Complaint (Nursing): Back Pain History Per: Patient History/Exam Limitations: no limitations Onset/Duration Of Symptoms: Days Current Symptoms Are (Timing): Still Present Quality Of Discomfort: Dull Severity: Moderate Pain Scale Rating Of: 4 Previous Symptoms: Neck Pain Associated Symptoms: None Exacerbating Factor(s): Turning, Movement Recent travel outside of the [facility]: No Additional History Per: Patient Past Medical History Reviewed: Historical Data, Nursing Documentation, Vital Signs Vital Signs: Last Vital Signs Temp 97.7 F 06/24/16 05:52 Pulse 73 06/24/16 05:52 Resp 18 06/24/16 05:52 BP 163/65 H 06/24/16 05:52 Pulse Ox 92 L 06/24/16 05:52 - Medical History PMH: Arthritis, Benign Prostatic Hyperplasia, Diabetes (NIDDM), Diverticulitis, Gall Bladder Disease (CHOLECYSTECTOMY "MANY YEARS AGO"), HTN, Hypercholesterolemia, Sleep Apnea (NO C PAP), TIA (this admission) Denies: Peripheral Edema, Chronic Kidney Disease Surgical History: Cholecystectomy ("Over 20 years ago"), Hernia Repair Denies: Pacemaker - [facility] Procedures ENDOSC POLYPECTOMY OF LG INTEST (08/03/14) Family History: States: No Known Family Hx - Social History Hx Tobacco Use: Yes Hx Alcohol Use: No Hx Substance Use: No - Immunization History Hx Tetanus Toxoid Vaccination: Yes Hx Influenza Vaccination: Yes Hx Pneumococcal Vaccination: Yes Review Of Systems Constitutional: Negative for: Fever, Chills Eyes: Negative for: Redness ENT: Negative for: Throat Pain, Throat Swelling Cardiovascular: Positive for: Chest Pain Respiratory: Positive for: Shortness of Breath Gastrointestinal: Negative for: Nausea, Vomiting Genitourinary: Negative for: Dysuria, Frequency Musculoskeletal: Positive for: Neck Pain Skin: Negative for: Rash, Lesions, Jaundice, Bruising Neurological: Negative for: Weakness Psych: Negative for: Anxiety Physical Exam - Physical Exam Appears: Non-toxic, No Acute Distress Skin: Warm, Dry Head: Normacephalic Eye(s): bilateral: Normal Inspection Oral Mucosa: Moist Neck: Decreased ROM, Trachea Midline, Paracervical Tenderness, No Step Off Deformity, Supple Chest: Symmetrical Cardiovascular: Rhythm Regular Respiratory: No Rales, Rhonchi (at bases), No Wheezing Gastrointestinal/Abdominal: Soft, No Tenderness, No Distention Back: Normal Inspection Extremity: Normal ROM Extremity: Bilateral: Atraumatic, Normal Color And Temperature Neurological/Psych: Oriented x3, Normal Speech, Normal Cognition Gait: Steady ED Course And Treatment O2 Sat by Pulse Oximetry: 92 Pulse Ox Interpretation: Normal Disposition Counseled Patient/Family Regarding: Studies Performed, Diagnosis - Disposition Disposition Time: 06:33 Condition: UNKNOWN - Clinical Impression Clinical Impression: Neck pain Physician Patient Turnover Patient Signed Over To: Guilherme Waters Handoff Comments: pending labs and dispo
[2016-06-24 07:37] VITALS: BP 123/64; PULSE 72; RESP 20; TEMP 98.2; O2SAT 96
== END 2016-06-24 07:35 | disposition home or self-care (01) ==
LOC: C.ER 05:40
DX: M54.2 Cervicalgia (principal)
CPT/HCPCS: 96374; 99284; J1885

== ENCOUNTER 2017-05-01 07:49 | Day surgery (SDC) | payer MEDICARE, MEDICAID ==
--- NOTE | 2017-05-01 10:34 | CP.SDSHP ---
Same Day Surgery H & P - History Proposed Procedure: colonoscopy Pre-Op Diagnosis: rectal bleeding - Previous Medical/Surgical History Cardiac: Hypertension, ASHD/CAD Endocrine/Metabolic: Diabetes Neuro: TIA/CVA - Allergies Allergies: Allergies No Known Allergies Allergy (Verified 06/24/16 05:58) - Physical Exam General Appearance: NAD Vital Signs: Vital Signs 05/01/17 08:24 Temperature 97 F L Pulse Rate 78 Respiratory 18 Rate Blood Pressure 160/59 H O2 Sat by Pulse 98 Oximetry Mental Status: Alert & Oriented x3 Neuro: WNL Heart: WNL Lungs: WNL GI: WNL - {Optional Preform as Required} Abdomen: WNL - Impression Pt. Evaluated Today:Candidate for Anesthesia & Procedure: Yes - Date & Time Date: 05/01/17 Time: 10:34 Short Stay Discharge - Short Stay Discharge Admitting Diagnosis/Reason for Visit: RECTAL BLEEDING Disposition: HOME/ ROUTINE
[2017-05-01] MEDS ORDERED: Propofol 10 mg/ml Inj (20 ML) ONE (10:35)
[2017-05-01] MEDS ORDERED: Lactated Ringer's 1,000 ML IV ONE (10:35)
[2017-05-01 12:04] VITALS: RESP 15; TEMP 98.7
[2017-05-01 12:11] VITALS: BP 131/57; PULSE 74; O2SAT 94
== END 2017-05-01 12:19 | disposition home or self-care (01) ==
LOC: C.ENDO 07:49
PROVIDERS: ATTEND Internal Medicine Gastroenterology
DX: K55.21 Angiodysplasia of colon with hemorrhage (principal); E11.9 Type 2 diabetes mellitus without complications; D12.5 Benign neoplasm of sigmoid colon; I10 Essential (primary) hypertension; I25.10 Atherosclerotic heart disease of native coronary artery without angina pectoris; Z86.73 Personal history of transient ischemic attack (TIA), and cerebral infarction without residual deficits
CPT/HCPCS: 45380; 45385; 82948; 88305; J2704; J3010; J7120

== ENCOUNTER 2017-07-28 06:22 | Emergency (ER) | payer MEDICARE, MEDICAID ==
[2017-07-28 06:23] VITALS: BMI 36.7
[2017-07-28 06:32] VITALS: O2SAT 98
--- NOTE | 2017-07-28 07:32 | C.PDOC ---
History Of Present Illness 77 y/o male, w/PMhx of diabetes and HTN, c/o constipation x 2-3 days. Pt states that he strained to have a bm in the morning today without any urge to defecate. Pt did not have bm and he saw blood when he wiped his bottom. Denies having abdominal pain, n/v/d, fever, and chills. Time Seen by Provider: 07/28/17 07:06 Chief Complaint (Nursing): GI Problem History Per: Patient History/Exam Limitations: no limitations Onset/Duration Of Symptoms: Days Current Symptoms Are (Timing): Still Present Severity: Moderate Past Medical History Reviewed: Historical Data, Nursing Documentation, Vital Signs Vital Signs: Last Vital Signs Temp 98.4 F 07/28/17 09:07 Pulse 71 07/28/17 09:07 Resp 18 07/28/17 09:07 BP 119/66 07/28/17 09:07 Pulse Ox 98 07/28/17 09:20 - Medical History PMH: Arthritis, Benign Prostatic Hyperplasia, Colonic Polyps, Diabetes (NIDDM), Diverticulitis, Gall Bladder Disease (CHOLECYSTECTOMY "MANY YEARS AGO"), HTN, Hypercholesterolemia, Sleep Apnea (NO C PAP), TIA (this admission) Denies: Peripheral Edema, Chronic Kidney Disease Surgical History: Cholecystectomy ("Over 20 years ago"), Hernia Repair Denies: Pacemaker - [facility] Procedures ENDOSC POLYPECTOMY OF LG INTEST (08/03/14) Family History: States: No Known Family Hx - Social History Hx Tobacco Use: Yes Hx Alcohol Use: No Hx Substance Use: No - Immunization History Hx Tetanus Toxoid Vaccination: Yes Hx Influenza Vaccination: Yes Hx Pneumococcal Vaccination: Yes Review Of Systems Constitutional: Negative for: Fever, Chills Gastrointestinal: Positive for: Constipation, Other (rectal bleeding). Negative for: Nausea, Vomiting, Abdominal Pain, Diarrhea Physical Exam - Physical Exam Appears: Well, Non-toxic, No Acute Distress Skin: Normal Color, Warm, Dry Head: Atraumatic, Normacephalic Eye(s): bilateral: Normal Inspection Neck: Supple Chest: Symmetrical Cardiovascular: Rhythm Regular Respiratory: Normal Breath Sounds, No Rales, No Rhonchi, No Wheezing Gastrointestinal/Abdominal: Soft, No Tenderness, No Distention, No Guarding, No Rebound, Other (large) Rectal: No Hemorrhoids, Other (2 parallel fissures to the left side at about the 3 o clock position, (-) gross blood in vault) Neurological/Psych: Oriented x3, Normal Speech ED Course And Treatment O2 Sat by Pulse Oximetry: 98 (RA) Pulse Ox Interpretation: Normal - Other Rad X-Ray- Abd X-Ray: Viewed By Me, Read By Radiologist Interpretation: HISTORY: eval for constipation. COMPARISON: CT abdomen and pelvis from 12/23/2015. FINDINGS: BOWEL: There is moderate amount of stool in the colon. The bowel gas pattern is non obstructive. There are multiple coils in the upper and lower abdomen related to prior hernia repair. BONES: Normal. OTHER FINDINGS: None. IMPRESSION: Nonobstructive nonspecific bowel gas pattern. Constipation. Medical Decision Making Medical Decision Making: Plan: --X-Ray -Abdomen 902 xray consistent with constipation. pt advised not to strain. will d/c with miralax and colace. pmd f/u Disposition Counseled Patient/Family Regarding: Studies Performed, Diagnosis, Need For Followup, Rx Given - Disposition Referrals: Austin Davalos MD [Staff Provider] - Disposition: HOME/ ROUTINE Disposition Time: 09:05 Condition: GOOD Additional Instructions: Please do not strain to have bowel movement, Increase fiber intake- more fruits and vegetables. Take colace and miralax as prescribed Wipe rectal regoni gently. Return to ER for any worse symptoms. Follow up with your doctor in 1-2 days. Prescriptions: Docusate Sodium [Colace] 100 mg PO BID #60 capsule Polyethylene Glycol 3350 [Miralax] 17 gm PO DAILY #30 powd.pack Instructions: High Fiber Diet, Constipation, Adult (DC), Anal Fissure (DC) Forms: [employer] (Mal[place]ian), General Discharge Instructions - Clinical Impression Clinical Impression: Constipation, Acute anal fissure - PA / CONTRACTS ATTORNEY / Resident Statement MD/DO has reviewed & agrees with the documentation as recorded. - Scribe Statement The provider has reviewed the documentation as recorded by the Dean Salcedo Provider Attestation All medical record entries made by the Jodiibkaryna were at my direction and personally dictated by me. I have reviewed the chart and agree that the record accurately reflects my personal performance of the history, physical exam, medical decision making, and the department course for this patient. I have also personally directed, reviewed, and agree with the discharge instructions and disposition.
--- NOTE | 2017-07-28 08:48 | RAD ---
HISTORY: eval for constipation COMPARISON: CT abdomen and pelvis from 12/23/2015 FINDINGS: BOWEL: There is moderate amount of stool in the colon. The bowel gas pattern is non obstructive. There are multiple coils in the upper and lower abdomen related to prior hernia repair. BONES: Normal. OTHER FINDINGS: None. IMPRESSION: Nonobstructive nonspecific bowel gas pattern. Constipation.
[2017-07-28 09:08] VITALS: BP 119/66; PULSE 71; RESP 18; TEMP 98.4
== END 2017-07-28 09:20 | disposition home or self-care (01) ==
LOC: C.ER 06:22
DX: K60.0 Acute anal fissure (principal); K59.00 Constipation, unspecified